=== PATIENT | female | born 1950 | race Caucasian/White ===

== ENCOUNTER 2019-03-22 22:56 | Emergency (ER) | payer MEDICARE ==
--- NOTE | 2019-03-23 00:20 | Emergency Department Record ---
History of Present Illness - General Chief Complaint: Ankle/Foot Injury Stated Complaint: RT FOOT INJURY Time Seen by Provider: 03/22/19 23:25 Source: Patient Mode of Arrival: Ambulatory Limitations: No limitations - History of Present Illness Initial Comments: pt ran golf cart into garage door accidentally breaking door and shattering glass which cut her ankle. she denies other injury MD Complaint: Foot injury Onset/Timin -: Hour(s) Injury: Foot: Right Type of Injury: Puncture wound Place: Home Severity: Moderate Severity scale (1-10): 6 Improves With: Immobilization Worsens With: Movement, Palpation Context: Other Associated Symptoms: Ambulatory Treatments Prior to Arrival: Bandage - Related Data Home Medications Medication Instructions Recorded Confirmed Last Taken Aspirin [Ecotrin] 81 mg PO DAILY 03/22/19 03/22/19 Unknown Allergies Allergy/AdvReac Type Severity Reaction Status Date / Time No Known Drug Allergies Allergy Verified 03/22/19 23:07 Travel Screening - Travel/Exposure Within Last 30 Days Have you traveled within the last 30 days?: No - Travel Symptoms Symptom Screening: None Review of Systems Reviewed: No additional complaints except as noted below Constitutional: Reports: As per HPI. Denies: Chills, Fever, Malaise, Night sweats, Weakness, Weight change Eyes: Reports: As per HPI. Denies: Eye discharge, Eye pain, Photophobia, Vision change ENT: Reports: As per HPI. Denies: Congestion, Dental pain, Ear pain, Epistaxis, Hearing loss, Throat pain Respiratory: Reports: As per HPI. Denies: Cough, Dyspnea, Hemoptysis, Stridor, Wheezes Cardiovascular: Reports: As per HPI. Denies: Arrhythmia, Chest pain, Dyspnea on exertion, Edema, Murmurs, Orthopnea, Palpitations, Paroxysmal nocturnal dyspnea, Rheumatic Fever, Syncope Endocrine: Reports: As per HPI. Denies: Fatigue, Heat or cold intolerance, Polydipsia, Polyuria Gastrointestinal: Reports: As per HPI. Denies: Abdominal pain, Constipation, Diarrhea, Hematemesis, Hematochezia, Melena, Nausea, Vomiting Genitourinary: Reports: As per HPI. Denies: Abnormal menses, Discharge, Dyspareunia, Dysuria, Frequency, Hematuria, Incontinence, Retention, Urgency Musculoskeletal: Reports: As per HPI. Denies: Arthralgia, Back pain, Gout, Joint swelling, Myalgia, Neck pain Skin: Reports: As per HPI. Denies: Bruising, Change in color, Change in hair/nails, Lesions, Pruritus, Rash Neurological: Reports: As per HPI. Denies: Abnormal gait, Confusion, Headache, Numbness, Paresthesias, Seizure, Tingling, Tremors, Vertigo, Weakness Psychiatric: Reports: As per HPI. Denies: Anxiety, Auditory hallucinations, Depression, Homicidal thoughts, Suicidal thoughts, Visual hallucinations Hematological/Lymphatic: Reports: As per HPI. Denies: Anemia, Blood Clots, Easy bleeding, Easy bruising, Swollen glands Past Medical History - SOCIAL HISTORY Smoking Status: Never smoker Alcohol Use: None Drug Use: None - RESPIRATORY Hx Respiratory Disorders: No - CARDIOVASCULAR Hx Cardio Disorders: No - NEURO Hx Neuro Disorders: No - GI Hx GI Disorders: Yes Comment:: liver tx - Hx Genitourinary Disorders: No - ENDOCRINE Hx Endocrine Disorders: Yes Hx Diabetes: Yes - MUSCULOSKELETAL Hx Musculoskeletal Disorders: No - PSYCH Hx Psych Problems: No Family Medical History Any Significant Family History?: Yes Hx Cancer: Mother Hx Resp Disorders: Father *Resp Comment: copd Hx Stroke: Grandparents *Stroke Comment: grandmother Physical Exam - General General Appearance: Alert, Oriented x3, Cooperative, Mild distress - Head Head exam: Normal inspection - Eye Eye exam: Normal appearance, PERRL, EOMI Pupils: Normal accommodation - ENT ENT exam: Normal exam, Mucous membranes moist, Normal external ear exam, Normal orophraynx Ear exam: Normal external inspection. negative: External canal tenderness Nasal Exam: Normal inspection. negative: Discharge, Sinus tenderness Mouth exam: Normal external inspection, Tongue normal Teeth exam: Normal inspection. negative: Dental caries Throat exam: Normal inspection. negative: Tonsillar erythema, Tonsillar exudate - Neck Neck exam: Normal inspection, Full ROM. negative: Tenderness - Respiratory Respiratory exam: Normal lung sounds bilaterally. negative: Respiratory distress - Cardiovascular Cardiovascular Exam: Regular rate, Normal rhythm, Normal heart sounds - GI/Abdominal GI/Abdominal exam: Soft, Normal bowel sounds. negative: Tenderness - Rectal Rectal exam: Deferred - exam: Deferred - Extremities Extremities exam: Full ROM, Normal capillary refill, Tenderness Image of Feet: 1 - 2cm lac - Back Back exam: Reports: Normal inspection, Full ROM. Denies: Muscle spasm, Rash noted, Tenderness - Neurological Neurological exam: Alert, CN II-XII intact, Normal gait, Oriented X3 - Psychiatric Psychiatric exam: Normal affect, Normal mood - Skin Skin exam: Dry, Intact, Normal color, Warm Course Vital Signs 03/22/19 23:07 Temperature 97.6 F Pulse Rate [ 74 Left] Respiratory 17 Rate Blood Pressure 162/77 [Left Arm] Pulse Ox 96 - Reevaluation(s) Reevaluation #1: 03/23/19 00:18 no fb Disposition Disposition: Discharge Clinical Impression: Laceration Disposition: Home, Self-Care Condition: (1) Good Instructions: Laceration (ED), Care For Your Stitches (ED) Additional Instructions: follow up with family doctor this week. rest. return sooner if worse. stitches out in 10days Quality - Quality Measures Quality Measures: N/A - Blood Pressure Screening Does Patient Have Any of the Following: No Blood Pressure Classification: Hypertensive Reading Systolic Measurement: 162 Diastolic Measurement: 77 Screening for High Blood Pressure: < First Hypertensive BP, F/U Documented > [G8950] First Hypertensive Follow-up Interventions: Follow-up with rescreen GT 1 day and LT 4 weeks. Laceration - Other - Time Out Informed consent:: Informed consent obtained Confirmed first & last name, , procedure, correct site?: Yes Start Date:: 03/23/19 Start Time:: 00:19 - Location Location of laceration:: Right, Anterior Laceration located on:: Foot Length of laceration:: 2 Length of laceration:: cm - Local Anesthetic Lidocaine used:: 1% Lidocaine dose:: 1 mL - Procedural Detail Tissue detail:: Torn Foreign body in the wound?: No Undermining was preformed?: No Stent applied?: No Orestes applied?: No Suture material/size:: 5-0: Prolene Number of skin sutures:: 4 Neurovascular intact?: Yes - Post Procedural Detail Complications:: No
--- NOTE | 2019-03-24 08:36 | RADIOLOGY REPORT ---
EXAM: ANKLE RIGHT 3 VIEWS HISTORY: LACERATION TO ANTERIOR ANKLE. EVALUATE FOR FOREIGN BODY. TECHNIQUE: Three views of the right ankle. COMPARISON: None. FINDINGS: There is normal bone mineralization. No acute fracture nor dislocation. There are mild degenerative changes scattered within the ankle and hindfoot. Chronic linear calcification is noted in the region of the medial ligamentous complex. There is also linear calcification involving the proximal aspect of the plantar fascia. Small to moderate-sized plantar calcaneal spur is present and there is minor spurring of the Achilles tendon insertion on the posterior calcaneus. There is chronic-appearing curvilinear calcific density projecting near the dorsal margin of the talonavicular joint. This is likely chronic. There is mild anterior soft tissue swelling. No definite foreign body. IMPRESSION: 1. NO ACUTE FRACTURE NOR DISLOCATION. NO DEFINITE SOFT TISSUE FOREIGN BODY. 2. MILD ANTERIOR SOFT TISSUE SWELLING. 3. DEGENERATIVE CHANGES. CHRONIC CALCIFICATIONS. JOB NUMBER: [id number] MTDD
== END 2019-03-23 00:33 | disposition home or self-care (01) ==
LOC: ER 22:56
DX: S91.011A Laceration without foreign body, right ankle, initial encounter (principal); W25.XXXA Contact with sharp glass, initial encounter; Y92.008 Other place in unspecified non-institutional (private) residence as the place of occurrence of the external cause
CPT/HCPCS: 12001; 99283

== ENCOUNTER 2019-04-02 09:39 | Emergency (ER) | payer MEDICARE ==
--- NOTE | 2019-04-02 09:48 | Emergency Department Record ---
History of Present Illness - General Chief Complaint: Suture removal Stated Complaint: SUTURE REMOVAL Time Seen by Provider: 04/02/19 09:42 Source: Patient Mode of arrival: Ambulatory Limitations: No limitations - History of Present Illness Initial Comments: 69 yo female presents for wound evaluation for suture removal. No complaints since the original repair. No abnormal pain, redness or drainage. MD Complaint: Suture/staple removal, Wound re-check -: Days(s) (10) Returns Today for: Staple/stitch removal, Wound recheck Symptoms Since Prior Visit: Improved Associated Symptoms: None Treatments Prior to Arrival: Other - Related Data Allergies Allergy/AdvReac Type Severity Reaction Status Date / Time No Known Drug Allergies Allergy Verified 04/02/19 09:50 Review of Systems Constitutional: Denies: Chills, Fever ENT: Denies: Congestion Respiratory: Denies: Cough Cardiovascular: Denies: Edema Endocrine: Denies: Fatigue Gastrointestinal: Denies: Abdominal pain, Diarrhea, Nausea, Vomiting Musculoskeletal: Denies: Arthralgia, Myalgia Skin: Denies: Change in color, Rash Hematological/Lymphatic: Denies: Easy bleeding, Easy bruising Past Medical History - SOCIAL HISTORY Smoking Status: Never smoker Drug Use: None - RESPIRATORY Hx Respiratory Disorders: No - CARDIOVASCULAR Hx Cardio Disorders: No - NEURO Hx Neuro Disorders: No - GI Hx GI Disorders: Yes Comment:: liver tx - Hx Genitourinary Disorders: No - ENDOCRINE Hx Endocrine Disorders: Yes Hx Diabetes: Yes - MUSCULOSKELETAL Hx Musculoskeletal Disorders: No - PSYCH Hx Psych Problems: No Family Medical History Hx Cancer: Mother Hx Resp Disorders: Father *Resp Comment: copd Hx Stroke: Grandparents *Stroke Comment: grandmother Physical Exam - General General Appearance: Alert, Oriented x3, Cooperative, No acute distress Limitations: No limitations - Head Head exam: Atraumatic, Normal inspection - Eye Eye exam: Normal appearance - ENT ENT exam: Normal exam Ear exam: Normal external inspection Nasal Exam: Normal inspection Mouth exam: Normal external inspection - Neck Neck exam: Normal inspection - Extremities Extremities exam: Normal inspection, Other (Healing laceration of the anterior ankle without signs of complication) - Neurological Neurological exam: Alert, Oriented X3 - Psychiatric Psychiatric exam: Normal affect, Normal mood - Skin Skin exam: Other (Healing laceration) Course - Reevaluation(s) Reevaluation #1: 04/02/19 09:46 Sutures removed without difficulty No signs of complications with healing We discussed home care while the wound continues to heal We discussed reasons to return to the ED for recheck as well Disposition Disposition: Discharge Clinical Impression: Visit for suture removal Disposition: Home, Self-Care Condition: (1) Good Instructions: Stitches Removal (ED) Additional Instructions: Return if you have any concerns with the continued healing of the laceration Forms: Patient Portal Access Time of Disposition: 09:48 Quality - Quality Measures Quality Measures: N/A - Blood Pressure Screening Does Patient Have Any of the Following: No Blood Pressure Classification: Pre-Hypertensive BP Reading Systolic Measurement: 127 Diastolic Measurement: 68 Screening for High Blood Pressure: < Pre-Hypertensive BP, F/U Documented > [G8950] Pre-Hypertensive Follow-up Interventions: Referral to alternative/primary care provider.
== END 2019-04-02 10:03 | disposition home or self-care (01) ==
LOC: ER 09:39
DX: Z48.02 Encounter for removal of sutures (principal)